=== PATIENT | female | born 1970 | race Asian ===

== ENCOUNTER 2020-07-27 08:21 | Outpatient (REF) | payer OTHER, SELFPAY ==
--- NOTE | ~2020-07-27 | MM_ITS ---
EXAMINATION: MM SCREENING DIGITAL BREAST TOMOSYNTHESIS, BILATERAL CLINICAL INFORMATION: Screening. Asymptomatic. The lifetime risk of breast cancer based on the Tyrer-Cuzick Model is 12.9%. COMPARISON: Mammography: May 02, 2008 TECHNIQUE: Digital breast tomosynthesis is performed in both the craniocaudal and mediolateral oblique views along with computer-aided detection (CAD). Synthesized 2D images are generated from the tomosynthesis. FINDINGS: The breasts are extremely dense, which lowers the sensitivity of mammography (ACR BI-RADS breast composition Category d). There are no significant masses, abnormal calcifications, or other abnormalities. About the deep inferior aspect of the right breast there are a few vascular calcifications present. MM/MM tomosynthesis screening BI IMPRESSION: There are no significant changes from prior study. ASSESSMENT: BI-RADS 1: Negative RECOMMENDATION: Routine annual mammography screening. This patient's information was entered into a reminder system with a target due date for their next mammogram.
== END 2020-07-27 08:22 | disposition home or self-care (01) ==
LOC: HO.MAMMO 08:21
PROVIDERS: Visit Provider Internal Medicine
DX: Z12.31 Encounter for screening mammogram for malignant neoplasm of breast (principal)
CPT/HCPCS: 77063; 77067

== ENCOUNTER 2022-09-27 08:59 | Outpatient (REF) | payer BC, SELFPAY ==
[2022-09-27 11:30] LABS: MANUAL DIFF FLAG NO
[2022-09-27 11:52] LABS: Eosinophils Absolute Auto 0.1 X10*3/uL (0.0-0.4); Eosinophils Percent Auto 3.4 % (0-4); Hematocrit 42.8 % (37.0-47.0); Hemoglobin 14.3 g/dl (12.0-16.0); Imm Gran Abs Auto 0.01 X10*3/uL (0.00-0.03); Imm Gran Pct Auto 0.3 % (0.0-0.4); Lymphocytes Absolute Auto 1.2 X10*3/uL (1.2-4.9); Lymphocytes Percent Auto 40.8 % (20-40); Mean Corpuscular HGB Conc 33.4 g/dl (31.0-35.0); Mean Corpuscular Hemoglobin 29.5 pg (27.0-33.0); Mean Corpuscular Volume 88.2 fL (80.0-98.0); Mean Platelet Volume 11.1 fL (9.4-12.3); Monocytes Absolute Auto 0.2 X10*3/uL (0.1-1.2); Monocytes Percent Auto 6.5 % (2-11); Neutrophils Absolute Auto 1.4 x10*3/uL (2.0-8.3); Platelet Count 155 X10*3/uL (160-400); Red Blood Count 4.85 X10*6/uL (4.20-5.50); Red Cell Distribution Width 11.4 % (11.0-16.0); White Blood Count 2.9 X10*3/uL (4.8-10.8)
[2022-09-27 12:24] LABS: Cholesterol 168 mg/dL; Glucose Fasting 90 mg/dL (60-99); HDL Cholesterol 81 mg/dL; LDL Cholesterol Calculated 78 mg/dl; Triglycerides 46 mg/dL
[2022-09-27 12:29] LABS: Vitamin D 25-OH Total 38.8 ng/mL (>30)
== END 2022-09-27 09:00 | disposition home or self-care (01) ==
LOC: HO.HMGCLDS 08:59
PROVIDERS: PCP Internal Medicine; Visit Provider Internal Medicine
DX: Z00.00 Encounter for general adult medical examination without abnormal findings (principal); Z20.2 Contact with and (suspected) exposure to infections with a predominantly sexual mode of transmission
CPT/HCPCS: 36415; 80061; 82306; 82947; 85025

== ENCOUNTER 2023-10-03 07:51 | Outpatient (AMB) | payer OTHER, SELFPAY ==
[2023-10-03 08:07] VITALS: BP 110/70; PULSE 81; O2SAT 99; BMI 20.2
--- NOTE | 2023-10-03 08:07 | A.OFFPC_ITS ---
Vital Signs 10/03/23 08:07 Height 5 ft 6 in Weight 125 lb BMI 20.2 BP 110/70 Blood Pressure Location Lt brachial Position Sitting Pulse 81 Pulse Source Pulse Oximeter Pulse Oximetry (%) 99 Oxygen Delivery Method Room Air Intake Visit Reasons: physical Intake Note: Pt is here today for her PE: Mammogram 07/27/20 [place] 04/08/18 Allergies No Known Allergies Allergy (Verified 10/03/23 08:18) Medication List - Last Reconciled 10/03/23 by Lisbeth Arechiga MD multivitamin 1 tab PO DAILY Tobacco use date assessed: 10/03/23 Dental Screening Dental Screen Date: 10/03/23 Did you have a dental visit in the last 12 months?: Yes Did you have a dental problem in the last 6 months where you did not have access to dental care?: No Was dental information given to patient?: Patient has dentist HPI physical HPI Details 52-year-old lady with no significant pas t medical history, here today for her physical exam. She is due for her screening mammogram, last done in 2020 and is due for her cervical cancer screening done in 2018 both of which came back negative. She states that she has not had a period now for more than a year, last menstrual period was in July 2022. Denies any hot flashes. Has been feeling well with no complaints at present time. [facility] Medical History (Updated 10/06/23 @ 02:42 by Lisbeth Arechiga MD) Family history of liver disease Family history of cancer of gallbladder No history of major surgery within 1 month Thrombocytopenia Leukopenia COVID-19 vaccination declined Family History Father Gallbladder cancer Social History Housing: House Patient Tobacco Use Status: Never used Tobacco e-Cigarette/Vaping Use: Never Used Second Hand Smoke Exposure: No service: No Current occupational status: employed Cognitive needs: No Hearing needs: No Vision needs: Yes (glasses) Questionnaire PHQ-9 Over the last 2 weeks, how often have you been bothered by any of the following problems? 1. Little interest or pleasure in doing things: not at all 2. Feeling down, depressed, or hopeless: not at all 3. Trouble falling or staying asleep, or sleeping too much: not at all 4. Feeling tired or having little energy: not at all 5. Poor appetite or overeating: not at all 6. Feeling bad about yourself - or that you are a failure or have let yourself or your family down: not at all 7. Trouble concentrating on things, such as reading the newspaper or watching television: not at all 8. Moving or speaking so slowly that other people could have noticed. Or the opposite - being so fidgety or restless that you have been moving around a lot more than usual: not at all 9. Thoughts that you would be better off or of hurting yourself in some w ay: not at all Total score: 0 Depression Screening Interpretation: Negative Depression Screening Done: Yes 50805 - PHQ-9 Billing: Yes Source: Developed by Drs. Brody Savage, Chasidy Mcguire, Boris Saeed and colleagues, with an educational kleber from [employer]. Thrive Questionnaire Date Thrive assessed: 10/03/23 I am a: Patient What is your living situation today?: I have a steady place to live Within the past 12 months, did the food you bought not last and you didn't have the money to get more?: Never true Within the past 12 months, did you worry whether your food would run out before you got money to buy more?: Never true Do you have trouble paying for medicines?: No Do you have trouble getting transportation to medical appointments?: No Do you have trouble paying your heating and electricity bill?: No Do you have trouble taking care of your child, family member or friend?: No Do you have trouble with day-to-day activities such as bathing, preparing meals, shopping, managing finances, etc.?: No Are you currently unemployed and looking for a job?: No Are you interested in more education?: No Please select the resources that you would like help with: None THRIVE Score: 0 AUDIT C Alcohol Use Questionnaire (AUDIT-C) 1. How often do you have a drink containing alcohol?: Never 3. How often do you have six or more drinks on one occasion?: Never Total Score: 0 HILLARY-7 AMB Questionnaire HILLARY-7 Date HILLARY - 7 assessed: 10/03/23 Feeling nervous, anxious, or on edge: 0 = Not at all Not being able to stop or control worryin = Not at all Worrying too much about different things: 0 = Not at all Trouble relaxin = Not at all Being so restless that it is hard to sit still: 0 = Not at all Becoming easily annoyed or irritable: 0 = Not at all Feeling afraid as if something awful might happen: 0 = Not at all Total HILLARY-7 score (0-4 normal; 5-9 mild; 10-14 moderate; 15-21 severe): 0 Source: Developed by Drs. Brody Savage, Chasidy Mcguire, Boris Saeed and colleagues, with an educational kleber from [employer]. Review of Systems Const Denies body aches, Denies fatigue, Denies fever(s), Denies headache(s) and Denies weakness Eyes Denies change in vision, Denies eye discharge and Denies itchy eyes ENT Denies dizziness, Denies headache(s), Denies nasal congestion, Denies nasal discharge and Denies sore throat Card Denies chest pain, Denies lightheadedness, Denies palpitations and Denies dyspnea Resp Denies chest congestion, Denies cough, Denies dyspnea and Denies wheezing GI Denies abdominal pain, Denies change in bowel habits and Denies heartburn Details: Complains of some itching around her vulvar area and labia, denies any abnormal vaginal discharge Denies hematuria, Denies urinary frequency, Denies dysuria and Denies urinary urgency Musc Reports no additional complaints Skin/Breast Denies breast pain, Denies breast mass, Denies lesions and Denies rash Neuro Denies dizziness, Denies headache(s) and Denies weakness Psych Reports no additional complaints Endo Denies fatigue, Denies polydipsia, Denies polyuria and Denies palpitations [place]/Lymph Denies easy bruising Aller/Immun Denies itchy eyes, Denies seasonal rhinorrhea and Denies wheezing Physical exam (Primary Care) Vital Signs: Last Vital Signs Pulse 81 10/03/23 08:07 BP 110/70 10/03/23 08:07 Pulse Ox 99 10/03/23 08:07 Oxygen Delivery Method Room Air 10/03/23 08:07 BMI result Body Mass Index 20.2 Tobacco/Smoking Status: Tobacco use Status Tobacco use date assessed 10/03/23 10/03/23 08:12 Patient Tobacco Use Status Never used Tobacco 10/03/23 08:08 e-Cigarette/Vaping Use Never Used 10/03/23 08:12 PHQ-9: PHQ-9 Score PHQ-9: Total score 0 10/03/23 08:31 Depression Screening Interpretation: Negative Thrive Assessment: Date of Thrive Assessment Date Thrive assessed 10/03/23 10/03/23 08:18 Const General: healthy appearing, comfortable and no acute distress Nutritional Appearance: average body habitus Orientation/consciousness: patient oriented x3 HENMT Head: Yes normocephalic Ears: hearing grossly normal bilaterally, external ears normal, TM's normal bilaterally and EAC's normal General nose exam: Normal external nose present Face and sinus: Yes face symmetric Mouth: Normal oral and palatal mucosa present, oropharynx normal and moist mucous membranes Eyes General: appearance normal, both eyes and all related structures Neck Neck: Yes full ROM, Yes no lymphadenopathy and Yes supple Thyroid: Thyroid normal Chest Breast/axilla inspection: normal inspection of the breasts Breast/axilla palpation: normal palpation of the breasts Resp Effort & Inspection: normal respiratory effort and able to speak in complete sentences Auscultation: clear to auscultation bilaterally Cardio Palpation: normal PMI Rate: regular rate Rhythm: regular rhythm Heart sounds: S1 normal heart sound present and S2 normal heart sound present GI Inspection: Yes normal to inspection Palpation (GI): Soft to palpation, nontender, no guarding and no masses Auscultation: normal bowel sounds General: Yes bladder normal to palpation and Yes no CVA tenderness External Female Exam: normal external appearance, normal appearance of the urethra, erythema (At vulvar area), No external swelling and No lesion Speculum Exam - Vagina: normal appearance of the vagina, normal palpation and normal vaginal discharge Speculum Exam - Cervix: normal appearance of the cervix and normal palpation Bimanual exam- vagina & uterus: normal palpation, bladder normal to palpation, consistency normal, normal palpation and non-tender Bimanual Exam- Adnexa, other: normal adnexae, no masses, normal and No adnexal tenderness Back/Spine/Pelvis Back: no CVA tenderness Cervical Spine: cervical ROM normal Thoracic/Lumbar Spine: thoracic and lumbar spine normal to inspection Skin Rashes: rashes noted (Vulvar area) Neuro General: patient oriented x3, gait normal, tone normal, moves all extremities, Normal light touch and pain sensation and no focal motor deficits Extrem General: Yes full ROM, Yes no joint enlargement, Yes no clubbing, cyanosis or edema, Yes no calf tenderness and Yes normal gait Psych Appearance: grossly normal and well kempt Mental Status: mental status grossly normal Speech and movement: Normal speech and movement present Affect: normal affect Attitude: cooperative Thought process: Normal thought process present Assessment and Plan Assessment & Plan (1) Cervical cancer screening: Code(s): Z12.4 - Encounter for screening for malignant neoplasm of cervix Plan: Pap smear and pelvic exam done today (2) Leukopenia: Code(s): D72.819 - Decreased white blood cell count, unspecified Qualifiers: Leukopenia type: unspecified Qualified Code(s): D72.819 - Decreased white blood cell count, unspecified Plan: Repeat CBC ordered (3) Thrombocytopenia: Code(s): D69.6 - Thrombocytopenia, unspecified Plan: CBC and platelet ordered (4) Menopause present: Code(s): Z78.0 - Asymptomatic menopausal state Plan: Patient currently asymptomatic (5) Annual visit for general adult medical examination with abnormal findings: Code(s): Z00.01 - Encounter for general adult medical examination with abnormal findings Plan: Will check appropriate labs. Continue with regular dental visit every 6 months and regular eye exams, at least every 2 years. Take adequate calcium in diet and vitamin-D 3 at 2000 IU per cap once a day, in addition to weight-bearing exercises to help maintain good muscle tone and weight control. Instructed to do self-breast exam, and continue to get yearly mammogram,. Cervical cancer screening and pelvic exam done today. Refused colonoscopy procedure, Cologuard testing ordered (6) Family history of liver disease: Code(s): Z83.79 - Family history of other diseases of the digestive system Plan: Hepatitis B and C profile ordered as well as comprehensive metabolic panel ordered (7) Vulvar rash: Code(s): R21 - Rash and other nonspecific skin eruption Plan: Betamethasone cream 0.05% cream, to be applied sparingly to affected area once a day for no more than 10 days. Return to clinic if no improvement Orders: Orders Pap Smear 10/03/23 Z12.4 - Encounter for screening for malignant neoplasm of cervix Hepatitis B,C Profile 10/04/23 D69.6 - Thrombocytopenia, unspecified, D72.819 - Decreased white blood cell count, unspecified, Z00.01 - Encounter for general adult medical examination with abnormal findings, Z12.11 - Encounter for screening for malignant neoplasm of colon, Z12.12 - Encounter for screening for malignant neoplasm of rectum, Z78.0 - Asymptomatic menopausal state, Z80.0 - Family history of malignant neoplasm of digestive organs, Z83.79 - Family history of other diseases of the digestive system Comprehensive Critz. Panel Fast 10/04/23 D69.6 - Thrombocytopenia, unspecified, D72.819 - Decreased white blood cell count, unspecified, Z00.01 - Encounter for general adult medical examination with abnormal findings, Z12.11 - Encounter for screening for malignant neoplasm of colon, Z12.12 - Encounter for screening for malignant neoplasm of rectum, Z78.0 - Asymptomatic menopausal state, Z80.0 - Family history of malignant neoplasm of digestive organs, Z83.79 - Family history of other diseases of the digestive system Lipid Panel 10/04/23 D69.6 - Thrombocytopenia, unspecified, D72.819 - Decreased white blood cell count, unspecified, Z00.01 - Encounter for general adult medical examination with abnormal findings, Z12.11 - Encounter for screening for malignant neoplasm of colon, Z12.12 - Encounter for screening for malignant neoplasm of rectum, Z78.0 - Asymptomatic menopausal state, Z80.0 - Family history of malignant neoplasm of digestive organs, Z83.79 - Family history of other diseases of the digestive system Vitamin D 25-OH Total 10/04/23 D69.6 - Thrombocytopenia, unspecified, D72.819 - Decreased white blood cell count, unspecified, Z00.01 - Encounter for general adult medical examination with abnormal findings, Z12.11 - Encounter for screeni ng for malignant neoplasm of colon, Z12.12 - Encounter for screening for malignant neoplasm of rectum, Z78.0 - Asymptomatic menopausal state, Z80.0 - Family history of malignant neoplasm of digestive organs, Z83.79 - Family history of other diseases of the digestive system Complete Blood Count Auto Diff 10/04/23 D69.6 - Thrombocytopenia, unspecified, D72.819 - Decreased white blood cell count, unspecified, Z00.01 - Encounter for general adult medical examination with abnormal findings, Z12.11 - Encounter for screening for malignant neoplasm of colon, Z12.12 - Encounter for screening for malignant neoplasm of rectum, Z78.0 - Asymptomatic menopausal state, Z80.0 - Family history of malignant neoplasm of digestive organs, Z83.79 - Family history of other diseases of the digestive system Referrals Cologuard Test D69.6 - Thrombocytopenia, unspecified, D72.819 - Decreased white blood cell count, unspecified, Z00.01 - Encounter for general adult medical examination with abnormal findings, Z12.11 - Encounter for screening for malignant neoplasm of colon, Z12.12 - Encounter for screening for malignant neoplasm of rectum, Z78.0 - Asymptomatic menopausal state, Z80.0 - Family history of malignant neoplasm of digestive organs, Z83.79 - Family history of other diseases of the digestive system Medications: New betamethasone, augmented 0.05 % 1 appl topical DAILY 10 days PRN 15 grams 0RF Vulvar itching Coding Level of Care Code Est Pt Prev Care 40-64y(04539) Diagnoses Cervical cancer screening Z12.4 Leukopenia, unspecified type D72.819 Leukopenia type: unspecified Thrombocytopenia D69.6 Menopause present Z78.0 Annual visit for general adult medical examination with abnormal findings Z00.01 Family history of liver disease Z83.79 Vulvar rash R21
== END 2023-10-03 08:54 | disposition home or self-care (01) ==
PROVIDERS: Visit Provider Internal Medicine
DX: Z00.01 Encounter for general adult medical examination with abnormal findings (principal); D72.819 Decreased white blood cell count, unspecified; D69.6 Thrombocytopenia, unspecified; Z78.0 Asymptomatic menopausal state; Z83.79 Family history of other diseases of the digestive system; R21 Rash and other nonspecific skin eruption
CPT/HCPCS: 99213; 99396

== ENCOUNTER 2023-10-03 08:31 | Outpatient (REF) | payer OTHER, SELFPAY ==
[2023-10-09 18:59] LABS: HPV mRNA E6/E7 rflx Not Detected (Not Detected)
== END 2023-10-03 08:32 | disposition home or self-care (01) ==
LOC: HO.LAB 08:31
PROVIDERS: Visit Provider Internal Medicine
DX: Z12.4 Encounter for screening for malignant neoplasm of cervix (principal); Z11.51 Encounter for screening for human papillomavirus (HPV)
CPT/HCPCS: 87624; 88142

== ENCOUNTER 2023-10-04 06:35 | Outpatient (REF) | payer OTHER, SELFPAY ==
[2023-10-04 11:33] LABS: MANUAL DIFF FLAG NO
[2023-10-04 11:39] LABS: Basophils Percent Auto 1.1 % (0-2); Eosinophils Absolute Auto 0.2 X10*3/uL (0.0-0.4); Eosinophils Percent Auto 6.4 % (0-4); Hematocrit 41.2 % (37.0-47.0); Hemoglobin 13.7 g/dl (12.0-16.0); Lymphocytes Absolute Auto 1.1 X10*3/uL (1.2-4.9); Lymphocytes Percent Auto 43.2 % (20-40); Mean Corpuscular HGB Conc 33.3 g/dl (31.0-35.0); Mean Corpuscular Hemoglobin 29.5 pg (27.0-33.0); Mean Corpuscular Volume 88.8 fL (80.0-98.0); Mean Platelet Volume 11.3 fL (9.4-12.3); Monocytes Absolute Auto 0.2 X10*3/uL (0.1-1.2); Monocytes Percent Auto 5.7 % (2-11); Neutrophils Absolute Auto 1.2 x10*3/uL (2.0-8.3); Neutrophils Percent Auto 43.6 % (45-73); Platelet Count 159 X10*3/uL (160-400); Red Blood Count 4.64 X10*6/uL (4.20-5.50); Red Cell Distribution Width 11.6 % (11.0-16.0); White Blood Count 2.6 X10*3/uL (4.8-10.8)
[2023-10-04 11:58] LABS: Alanine Aminotransferase 16 U/L (0-31); Albumin Level 4.2 g/dL (3.5-5.0); Alkaline Phosphatase 74 U/L (39-117); Anion Gap 10 (12-20); Aspartate Amino Transferase 19 U/L (5-31); Bilirubin Total 0.5 mg/dL (0.0-1.0); Blood Urea Nitrogen 16 mg/dL (9-16); Calcium 9.2 mg/dL (8.4-10.2); Carbon Dioxide 27 mmol/L (22-29); Chloride 105 mmol/L (96-108); Cholesterol 150 mg/dL (<200); Estimated Glomerular Filt Rate > 60; Glucose Fasting 88 mg/dL (60-99); HDL Cholesterol 80 mg/dL (>40); LDL Cholesterol Calculated 61 mg/dL (<100); Potassium 3.8 mmol/L (3.3-5.1); Sodium 138 mmol/L (135-145); Total Protein 7.1 g/dL (6.5-8.0); Triglycerides 47 mg/dL (<150)
[2023-10-04 12:14] LABS: Vitamin D 25-OH Total 38.8 ng/mL (>30)
[2023-10-07 08:38] LABS: HBS Num1 0.57 mIU/mL (0-7.99); HBsAGNum1 0.33 S/CO (0.00-0.99); Hepatitis B Core Antibody Nonreactive (Nonreactive); Hepatitis B Surface Antigen Negative (Negative); ~HepC Num1 0.09 S/CO (0.00-0.79); ~Hepatitis B Surface Antibody NONREACTIVE (Nonreactive); ~Hepatitis C Antibody Nonreactive (Nonreactive)
== END 2023-10-04 06:36 | disposition home or self-care (01) ==
LOC: HO.HMGCLDS 06:35
PROVIDERS: PCP Internal Medicine; Visit Provider Internal Medicine
DX: Z00.01 Encounter for general adult medical examination with abnormal findings (principal); Z13.6 Encounter for screening for cardiovascular disorders; Z12.11 Encounter for screening for malignant neoplasm of colon; Z12.12 Encounter for screening for malignant neoplasm of rectum; D69.6 Thrombocytopenia, unspecified; D72.819 Decreased white blood cell count, unspecified; Z78.0 Asymptomatic menopausal state; Z80.0 Family history of malignant neoplasm of digestive organs; Z83.79 Family history of other diseases of the digestive system
CPT/HCPCS: 36415; 80053; 80061; 82306; 85025; 86704; 86706; 86803; 87340

== ENCOUNTER 2024-10-11 09:57 | Outpatient (REF) | payer OTHER, SELFPAY ==
[2024-10-11 13:10] LABS: MANUAL DIFF FLAG NO
[2024-10-11 13:18] LABS: Basophils Percent Auto 0.6 % (0-2); Eosinophils Absolute Auto 0.1 X10*3/uL (0.0-0.4); Eosinophils Percent Auto 2.5 % (0-4); Hematocrit 41.1 % (37.0-47.0); Hemoglobin 13.7 g/dl (12.0-16.0); Imm Gran Abs Auto 0.01 X10*3/uL (0.00-0.03); Imm Gran Pct Auto 0.3 % (0.0-0.4); Lymphocytes Absolute Auto 1.3 X10*3/uL (1.2-4.9); Lymphocytes Percent Auto 37.3 % (20-40); Mean Corpuscular HGB Conc 33.3 g/dl (31.0-35.0); Mean Corpuscular Hemoglobin 29.5 pg (27.0-33.0); Mean Corpuscular Volume 88.6 fL (80.0-98.0); Mean Platelet Volume 11.4 fL (9.4-12.3); Monocytes Absolute Auto 0.2 X10*3/uL (0.1-1.2); Monocytes Percent Auto 6.2 % (2-11); Neutrophils Absolute Auto 1.9 x10*3/uL (2.0-8.3); Neutrophils Percent Auto 53.1 % (45-73); Platelet Count 159 X10*3/uL (160-400); Red Blood Count 4.64 X10*6/uL (4.20-5.50); Red Cell Distribution Width 11.6 % (11.0-16.0); White Blood Count 3.6 X10*3/uL (4.8-10.8)
[2024-10-11 13:31] LABS: Alanine Aminotransferase 18 U/L (0-31); Anion Gap 11 (12-20); Aspartate Amino Transferase 24 U/L (5-31); Blood Urea Nitrogen 17 mg/dL (9-16); Carbon Dioxide 27 mmol/L (22-29); Chloride 107 mmol/L (96-108); Cholesterol 164 mg/dL (<200); Estimated Glomerular Filt Rate > 60; Glucose Fasting 92 mg/dL (60-99); HDL Cholesterol 74 mg/dL (>40); LDL Cholesterol Calculated 77 mg/dL (<100); Potassium 3.6 mmol/L (3.3-5.1); Sodium 141 mmol/L (135-145); Triglycerides 69 mg/dL (<150)
[2024-10-11 13:49] LABS: Vitamin D 25-OH Total 46.7 ng/mL (>30)
== END 2024-10-11 09:58 | disposition home or self-care (01) ==
LOC: HO.HMGCLDS 09:57
PROVIDERS: PCP Internal Medicine; Visit Provider Internal Medicine
DX: Z00.01 Encounter for general adult medical examination with abnormal findings (principal); D72.819 Decreased white blood cell count, unspecified; D69.6 Thrombocytopenia, unspecified; Z01.84 Encounter for antibody response examination; Z71.89 Other specified counseling; Z13.6 Encounter for screening for cardiovascular disorders
CPT/HCPCS: 36415; 80048; 80061; 82306; 84450; 84460; 85025; 86765; 86787; 96127

== ENCOUNTER 2024-10-11 09:57 | Outpatient (AMB) | payer OTHER, SELFPAY ==
--- NOTE | 2024-10-11 10:04 | A.OFFPC_ITS ---
Vital Signs 10/11/24 10:09 Height 5 ft 7 in Weight 124 lb BMI 19.4 BP 100/70 Blood Pressure Location Lt brachial Position Sitting Respiration 16 Pulse 67 Pulse Source Pulse Oximeter Temp 98.0 F Temp Source Oral Pulse Oximetry (%) 99 Oxygen Delivery Method Room Air Intake Visit Reasons: annual checkup Intake Note: Pt is here today for her PE:last mammogram 07/27/20, papsmear 10/07/23, cologuard 10/10/23 Allergies No Known Allergies Allergy (Verified 10/18/24 00:38) Medication List - Last Reconciled 10/18/24 by Lisbeth Arechiga MD multivitamin 1 tab PO DAILY Tobacco use date assessed: 10/11/24 Dental Screening Dental Screen Date: 10/11/24 Did you have a dental visit in the last 12 months?: No Did you have a dental problem in the last 6 months where you did not have access to dental care?: No Was dental information given to patient?: Patient has dentist HPI annual checkup HPI Details 54-year-old lady here today for her phys ical exam. She is overdue for her breast cancer screening, but is up-to-date with her cervical cancer screening and colon cancer screening, had Cologuard testing done last year which came back negative . She has been feeling well, with no complaints at present time. [facility] Medical History Family history of liver disease Family history of cancer of gallbladder No history of major surgery within 1 month Thrombocytopenia Leukopenia COVID-19 vaccination declined Family History Father Gallbladder cancer Social History Housing: House Patient Tobacco Use Status: Never used Tobacco e-Cigarette/Vaping Use: Never Used Second Hand Smoke Exposure: No service: No Current occupational status: employed Cognitive needs: No Hearing needs: No Vision needs: Yes (glasses) Questionnaire PHQ-9 Over the last 2 weeks, how often have you been bothered by any of the following problems? 1. Little interest or pleasure in doing things: not at all 2. Feeling down, depressed, or hopeless: not at all 3. Trouble falling or staying asleep, or sleeping too much: not at all 4. Feeling tired or having little energy: not at all 5. Poor appetite or overeating: not at all 6. Feeling bad about yourself - or that you are a failure or have let yourself or your family down: not at all 7. Trouble concentrating on things, such as reading the newspaper or watching television: not at all 8. Moving or speaking so slowly that other people could have noticed. Or the opposite - being so fidgety or restless that you have been moving around a lot more than usual: not at all 9. Thoughts that you would be better off or of hurting yourself in some way: not at all Total score: 0 Depression Screening Interpretation: Negative Depression Screening Done: Yes 04441 - PHQ-9 Billing: Yes Source: Developed by Drs. Brody Savage, Chasidy Mcguire, Boris Saeed and colleagues, with an educational kleber from [employer]. Thrive Questionnaire Date Thrive assessed: 10/03/23 AUDIT C Alcohol Use Questionnaire (AUDIT-C) 1. How often do you have a drink containing alcohol?: Never Total Score: 0 HILLARY-7 AMB Questionnaire HILLARY-7 Date HILLARY - 7 assessed: 10/11/24 Feeling nervous, anxious, or on edge: 0 = Not at all Not being able to stop or control worryin = Not at all Worrying too much about different things: 0 = Not at all Trouble relaxin = Not at all Being so restless that it is hard to sit still: 0 = Not at all Becoming easily annoyed or irritable: 0 = Not at all Feeling afraid as if something awful might happen: 0 = Not at all Total HILLARY-7 score (0-4 normal; 5-9 mild; 10-14 moderate; 15-21 severe): 0 Source: Developed by Drs. Brody Savage, Chasidy Mcguire, Boris Saeed and colleagues, with an educational kleber from [employer]. HILLARY-7 Assessment Billing HILLARY-7 Assessment Tool: HILLARY-7 Assessment 09641 Review of Systems Const Denies body aches, Denies fatigue, Denies fever(s), Denies headache(s) and Denies weakness Eyes Denies change in vision, Denies eye discharge and Denies itchy eyes ENT Denies dizziness, Denies headache(s), Denies nasal congestion and Denies nasal discharge Card Denies chest pain, Denies lightheadedness, Denies palpitations and Denies dyspnea Resp Denies chest congestion, Denies cough, Denies dyspnea and Denies wheezing GI Denies abdominal pain, Denies change in bowel habits and Denies heartburn Denies hematuria, Denies urinary frequency, Denies dysuria and Denies urinary urgency Musc Reports no additional complaints Skin/Breast Denies breast pain, Denies breast mass, Denies lesions and Denies rash Neuro Denies dizziness, Denies headache(s) and Denies weakness Psych Reports no additional complaints Endo Denies fatigue, Denies polydipsia, Denies polyuria and Denies palpitations [place]/Lymph Denies easy bruising Aller/Immun Denies itchy eyes, Denies seasonal rhinorrhea and Denies wheezing Physical exam (Primary Care) Vital Signs: Last Vital Signs Temp 98.0 F 10/11/24 10:09 Pulse 67 10/11/24 10:09 Resp 16 10/11/24 10:09 BP 100/70 10/11/24 10:09 Pulse Ox 99 10/11/24 10:09 Oxygen Delivery Method Room Air 10/11/24 10:09 BMI result Body Mass Index 19.4 Tobacco/Smoking Status: Tobacco use Status Tobacco use date assessed 10/11/24 10/11/24 10:06 Patient Tobacco Use Status Never used Tobacco 10/11/24 10:06 e-Cigarette/Vaping Use Never Used 10/11/24 10:06 PHQ-9: PHQ-9 Score PHQ-9: Total score 0 10/11/24 10:50 Depression Screening Interpretation: Negative Thrive Assessment: Date of Thrive Assessment Date Thrive assessed 10/03/23 10/11/24 10:06 Advance Care Planning discussion: Completed/Scanned Date of discussion: 10/11/24 Who was present: Patient Forms completed: Health Care Proxy Time spent: 16-45 minutes Actual minutes spent: 3 Const General: comfortable and no acute distress Nutritional Appearance: average body habitus Orientation/consciousness: patient oriented x3 HENMT Head: Yes normocephalic Ears: hearing grossly normal bilaterally, external ears normal, TM's normal bilaterally and EAC's normal General nose exam: Normal external nose present Face and sinus: Yes face symmetric Mouth: Normal oral and palatal mucosa present, oropharynx normal and moist mucous membranes Eyes General: appearance normal, both eyes and all related structures Neck Neck: Yes full ROM, Yes no lymphadenopathy and Yes supple Thyroid: Thyroid normal Chest Breast/axilla inspection: normal inspection of the breasts Breast/axilla palpation: normal palpation of the breasts Resp Effort & Inspection: normal respiratory effort and able to speak in complete sentences Auscultation: clear to auscultation bilaterally Cardio Palpation: normal PMI Rate: regular rate Rhythm: regular rhythm Heart sounds: S1 normal heart sound present and S2 normal heart sound present GI Inspection: Yes normal to inspection Palpation (GI): Soft to palpation, nontender, no guarding and no masses Auscultation: normal bowel sounds General: Yes bladder normal to palpation and Yes no CVA tenderness External Female Exam: normal external appearance, normal appearance of the urethra and No lesion Speculum Exam - Vagina: normal appearance of the vagina, normal palpation and normal vaginal discharge Speculum Exam - Cervix: normal appearance of the cervix and normal palpation Bimanual exam- vagina & uterus: normal palpation, bladder normal to palpation, consistency normal, normal palpation and non-tender Bimanual Exam- Adnexa, other: normal adnexae, no masses, normal and No adnexal tenderness Back/Spine/Pelvis Back: no CVA tenderness Cervical Spine: cervical ROM normal Thoracic/Lumbar Spine: thoracic and lumbar spine normal to inspection Neuro General: patient oriented x3, gait normal, tone normal, moves all extremities, Normal light touch and pain sensation and no focal motor deficits Extrem General: Yes full ROM, Yes no joint enlargement, Yes no clubbing, cyanosis or edema, Yes no calf tenderness and Yes normal gait Psych Appearance: grossly normal and well kempt Mental Status: mental status grossly normal Speech and movement: Normal speech and movement present Affect: normal affect Attitude: cooperative Thought process: Normal thought process present Coding Level of Care Code Est Pt Prev Care 40-64y(65527) Diagnoses Leukopenia, unspecified type D72.819 Leukopenia type: unspecified Thrombocytopenia D69.6 Annual visit for general adult medical examination with abnormal findings Z00.01 Immunity status testing Z01.84 Advanced directives, counseling/discussion Z71.89 Cervical cancer screening Z12.4 Additional Codes PHQ-9 - 10561 - PHQ-9 Billing: Yes ([id number]) Vital Signs *Quality* - Advance Care Planning discussion: Completed/Scanned ([id number]) Vital Signs *Quality* - Time spent: 16-45 minutes ([id number]) HILLARY-7 Assessment Billing - HILLARY-7 Assessment Tool: HILLARY-7 Assessment 59374 ([id number]) Assessment & Plan Assessment & Plan (1) Leukopenia: Code(s): D72.819 - Decreased white blood cell count, unspecified Category: Medical Qualifiers: Leukopenia type: unspecified Qualified Code(s): D72.819 - Decreased white blood cell count, unspecified Plan: CBC with differential ordered (2) Thrombocytopenia: Code(s): D69.6 - Thrombocytopenia, unspecified Category: Medical Plan: CBC with differential ordered (3) Annual visit for general adult medical examination with abnormal findings: Code(s): Z00.01 - Encounter for general adult medical examination with abnormal findings Plan: Will check appropriate labs. Recommended dental visit every 6 months and up-to-date with the regular eye exams, goes to [place], diagnosed with dry eye syndrome, using refresh eyedrops Take adequate calcium in diet and vitamin-D 3 at 2000 IU per cap once a day, in addition to weight-bearing exercises to help maintain good muscle tone and weight control. Instructed to do self-breast exam, and screening mammogram ordered, cervical cancer screening done today. Up -to-date with her vaccines but does not want to get a COVID booster. Colon cancer screening up-to-date, repeat Cologuard due again in 2026 (4) Immunity status testing: Code(s): Z01.84 - Encounter for antibody response examination Plan: Will check rubeola and varicella IgG titer (5) Advanced directives, counseling/discussion: Code(s): Z71.89 - Other specified counseling Plan: Initiated the conversation about Advanced Directives. Advanced Directives help patients prepare for current and future decisions about their medical treatment and place of care. Discussed with patient that it is a process where a patients current condition and prognosis are reviewed, their wishes for information regarding their illness are elicited, and likely medical dilemmas are presented and options discussed. Healthcare proxy form completed today The form can be amended as needed, reviewed yearly and make changes as needed (6) Cervical cancer screening: Code(s): Z12.4 - Encounter for screening for malignant neoplasm of cervix Plan: Cervical cancer screening done today Orders: Orders Varicella IgG Antibody 10/11/24 D69.6 - Thrombocytopenia, unspecified, D72.819 - Decreased white blood cell count, unspecified, Z00.01 - Encounter for general adult medical examination with abnormal findings, Z01.84 - Encounter for antibody response examination Aspartate Amino Transferase 10/11/24 D69.6 - Thrombocytopenia, unspecified, D72.819 - Decreased white blood cell count, unspecified, Z00.01 - Encounter for general adult medical examination with abnormal findings, Z01.84 - Encounter for antibody response examination Basic Metabolic Panel Fasting 10/11/24 D69.6 - Thrombocytopenia, unspecified, D72.819 - Decreased white blood cell count, unspecified, Z00.01 - Encounter for general adult medical examination with abnormal findings, Z01.84 - Encounter for antibody response examination Vitamin D 25-OH Total 10/11/24 D69.6 - Thrombocytopenia, unspecified, D72.819 - Decreased white blood cell count, unspecified, Z00.01 - Encounter for general adult medical examination with abnormal findings, Z01.84 - Encounter for antibody response examination MM tomosynthesis screening BI 10/11/24 Z12.31 - Encounter for screening mammogram for malignant neoplasm of breast Rubeola IgG (Measles) 10/11/24 D69.6 - Thrombocytopenia, unspecified, D72.819 - Decreased white blood cell count, unspecified, Z00.01 - Encounter for general adult medical examination with abnormal findings, Z01.84 - Encounter for antibody response examination Lipid Panel 10/11/24 D69.6 - Thrombocytopenia, unspecified, D72.819 - Decreased white blood cell count, unspecified, Z00.01 - Encounter for general adult medical examination with abnormal findings, Z01.84 - Encounter for antibody response examination Complete Blood Count Auto Diff 10/11/24 D69.6 - Thrombocytopenia, unspecified, D72.819 - Decreased white blood cell count, unspecified, Z00.01 - Encounter for general adult medical examination with abnormal findings, Z01.84 - Encounter for antibody response examination Alanine Aminotransferase 10/11/24 D69.6 - Thrombocytopenia, unspecified, D72.819 - Decreased white blood cell count, unspecified, Z00.01 - Encounter for general adult medical examination with abnormal findings, Z01.84 - Encounter for antibody response examination Pap Smear 10/11/24 Z12.4 - Encounter for screening for malignant neoplasm of cervix
[2024-10-11 10:09] VITALS: BP 100/70; PULSE 67; RESP 16; TEMP 36.7; O2SAT 99; BMI 19.4
== END 2024-10-11 10:56 | disposition home or self-care (01) ==
LOC: HO.HMCC 09:58
PROVIDERS: PCP Internal Medicine; Visit Provider Internal Medicine
DX: Z00.01 Encounter for general adult medical examination with abnormal findings (principal); D72.819 Decreased white blood cell count, unspecified; D69.6 Thrombocytopenia, unspecified; Z01.84 Encounter for antibody response examination; Z71.89 Other specified counseling; Z12.4 Encounter for screening for malignant neoplasm of cervix; Z00.00 Encounter for general adult medical examination without abnormal findings

== ENCOUNTER 2024-10-11 11:09 | Outpatient (REF) | payer OTHER, SELFPAY ==
[2024-10-16 15:14] LABS: HPV Genotype 16 Negative (Negative); HPV Genotype 18 Negative (Negative); HPV High Risk Negative (Negative)
== END 2024-10-11 11:10 | disposition home or self-care (01) ==
LOC: HO.LNP 11:09
PROVIDERS: Visit Provider Internal Medicine
DX: Z12.4 Encounter for screening for malignant neoplasm of cervix (principal)
CPT/HCPCS: 87626; 88175

== ENCOUNTER 2024-11-27 08:18 | Outpatient (REF) | payer OTHER, SELFPAY | END 2024-11-27 08:19 | disposition home or self-care (01) | LOC: HO.MAMMO 08:18 | PROVIDERS: PCP Internal Medicine; Visit Provider Internal Medicine | DX: Z12.31 Encounter for screening mammogram for malignant neoplasm of breast (principal) | CPT/HCPCS: 77063; 77067 ==

== ENCOUNTER → 2024-11-27 08:30 | Outpatient (BNV) | payer OTHER, SELFPAY | PROVIDERS: PCP Internal Medicine; Visit Provider Internal Medicine | DX: Z12.31 Encounter for screening mammogram for malignant neoplasm of breast (principal) | CPT/HCPCS: 77063; 77067 ==